=== PATIENT | male | born 1985 | race Caucasian/White ===

== ENCOUNTER 2024-06-05 12:19 | Emergency (ER) | payer BC, SELFPAY ==
[2024-06-05 12:26] VITALS: BP 137/82; PULSE 92; RESP 16; TEMP 36.6; O2SAT 98
--- OUTSIDE RECORDS SUMMARY | 2024-06-05 12:27 | XMS_ITS | Clinical Summary ---
Author Organization [facility] Address [address] [place] [address] Care Team Providers Care Carpet Measurer Name Role Phone James Mitchell MD Primary Care Provider [phone] Source Comments PLEASE NOTE, if this patient is a minor, it may be UNLAWFUL to discuss sensitive information that is contained in these records (such as FAMILY PLANNING, MENTAL HEALTH or SUBSTANCE ABUSE) with the minor patient's parent or other person without the patient's specific authorization.[facility] Allergies Active Allergy Reactions Criticality Noted Date Comments Latex Anaphylaxis,Hives,It ch ing,Palpitations,Rash, Swelling High 06/01/2021 Other Reaction(s): Unknown Sulfa (Sulfonamide Antibiotics) Hives,Itching,Rash High 06/29/2014 Other Reaction(s): Unknown Medications omeprazole (PRILOSEC) [address] capsule Take 20 mg by mouth once a week 06/01/2021 Active ESOMEPRAZOLE MAGNESIUM ORAL Take 1 Tablet by mouth once daily Active Active Problems Problem Noted Date Diagnosed Date Sexual dysfunction 11/01/2023 Assessment & Plan (01/14/2024 4:15 PM CDT): Resolved. Lab work-up unremarkable. Monitor for now. Assessment & Plan (11/05/2023 3:49 PM CDT): Check lab work-up. Advised patient to hold Calcium to see if symptoms resolve. Also consider treatment for anxiety vs Sildenafil prn. Need for vaccination 11/01/2023 Assessment & Plan (05/27/2024 9:42 AM RECEIVING OPERATOR): Flushot today. Assessment & Plan (01/14/2024 4:15 PM CDT): Advised patient to get flu and COVID-19 testing. He states that he will get this from outside retail pharmacy. [facility] to see if he needs any other vaccinations. Discuss at next visit. Assessment & Plan (11/05/2023 3:48 PM CDT): Tdap today. Anxiety 07/25/2023 Assessment & Plan (01/14/2024 4:24 PM CDT): Stable. Lab work-up unremarkable. Monitor for now. Assessment & Plan (11/05/2023 3:48 PM CDT): Check work-up. Monitor for now. GERD (gastroesophageal reflux disease) Assessment & Plan (05/27/2024 9:42 AM RECEIVING OPERATOR): Stable, controlled. Continue present management. Assessment & Plan (01/14/2024 4:14 PM CDT): Stable, controlled. Continue present management. Assessment & Plan (11/05/2023 3:48 PM CDT): Stable, controlled. Continue present management. Encounter for HIV pre-exposure prophylaxis 07/24 Assessment & Plan (05/27/2024 9:42 AM RECEIVING OPERATOR): Not currently taking PrEP due to lower risk level. Follow patient and restart PrEP when he is ready or if risk level changes. F/u in 6 months. Assessment & Plan (01/14/2024 4:14 PM CDT): Not currently taking PrEP due to lower risk level. Follow patient and restart PrEP when he is ready or if risk level changes. F/u in 6 months. Assessment & Plan (11/05/2023 3:49 PM CDT): Not currently taking PrEP due to lower risk level. Follow patient and restart PrEP when he is ready or if risk level changes. Assessment & Plan (07/25/2023 2:06 PM CDT): New to [facility]. Transferring from [facility]. Request records. Recent HIV and STI testing done through [facility] Prevention team. Continue Truvada. Patient declines Doxy PEP. - PrEP is indicated for substantial ongoing risk of acquiring HIV infection. - Patient denies signs or symptoms of acute HIV at this time. - Plan to obtain 4th gen HIV test as well as the labs below. - Plan to continue PrEP using Truvada. - patient was counseled on condoms, risk reduction, and PrEP adherence. High risk medication use 07/25/2023 History of syphilis 07/25/2023 Overview (07/29/2023): Spoke to Edward from [facility] Department regarding RPR titer hx for patient, hx as follows: 2007 (1:64) 05/2007 (1 x Bicillin) 2012 (1:16) 02/2013 (3 x Bicillin) 09/2017 (1:64) 09/2017 ( 3 x Bicillin) 02/2023 (1:64) No tx was administered after this testing Assessment & Plan (05/27/2024 9:42 AM RECEIVING OPERATOR): Improved RPR titer. Monitor for now. Assessment & Plan (01/14/2024 4:14 PM CDT): Improved RPR titer. Monitor for now. Assessment & Plan (07/25/2023 2:07 PM CDT): Recent labwork done through [facility] Prevention team. RPR titer 1:8. Patient reports history of syphilis diagnosis/treatment. Last RPR titer through [email or web address] patient portal was 1:4. Request records. Monitor RPR titer. Encounters Date Type Department Care Team Description 05/26/2024 1:00 PM RECEIVING OPERATOR Office Visit [facility] [id number] [place] [address] James Mitchell MD Encounter for HIV pre-exposure prophylaxis (Primary Dx); History of syphilis; Gastroesophageal reflux disease without esophagitis; Need for vaccination; High risk medication use from Last 3 Months Immunizations Name Administration Dates Next Due INFLUENZA, SEASONAL, INJECTABLE 06/30/2023 INFLUENZA, SEASONAL, INJECTABLE, PRESERVATIVE FR EE 05/26/2024 TDAP 11/01/2023 Social History Tobacco Use Types Packs/Day Years Used Date Smoking Tobacco: Never Smokeless Tobacco: Never Alcohol Use Standard Drinks/Week Comments Yes 0 (1 standard drink = 0.6 oz pur e alcohol) Rarely Social Connections Answer Date Recorded Connectedness 1 01/13/2024 Financial Resource Strain Answer Date R ecorded Financial Resource Strain 1 2023 Stress Answer Date Recorded Stress 1 01/13/2024 Physical Activity Answer Date Recorded Physical Activity 1 01/13/2024 Food Insecurity Answer Date Recorded Food 1 01/13/2024 Transportation Needs Answer Date Record ed Transportation 1 01/13/2024 Housing Stability Answer Date Recorded Housing 1 01/13/2024 Safety and Environment Answer Date Palu rded Safety 1 01/13/2024 Utilities Answer Date Recorded Utilities 1 01/13/2024 Employment Answer Date Recorded Stress 0 01/03/2024 Sex and Gender Information Value Date Recorded Sex Assigned at Male 07/25/2023 9:37 AM PDT Legal Sex Male 8:48 AM PDT Gender Identity Male 07/25/2023 9:37 AM PDT Sexual Orientation [place] 07/25/2023 9: 37 AM PDT Last Filed Vital Signs Vital Sign Reading Time Taken Comments Blood Pressure 122/84 05/26/2024 1:07 PM RECEIVING OPERATOR Pulse 76 05/26/2024 1:07 PM RECEIVING OPERATOR Temperature 36.7 C (98.1 F) 05/26/2024 1:07 PM RECEIVING OPERATOR Respiratory Rate - - Oxygen Saturation 95% 05/26/2024 1:07 PM RECEIVING OPERATOR Inhaled Oxygen Concentration - - Weight 85.5 kg (188 lb 9.6 oz) 05/26/2024 1:07 P M RECEIVING OPERATOR Height 175.3 cm (5' 9 ) 05/26/2024 1:07 PM RECEIVING OPERATOR Body Mass Index 27.85 05/26/2024 1:07 PM RECEIVING OPERATOR Plan of Treatment Upcoming Encounters Date Type Department Care Team (Late st Contact Info) Description 11/24/2024 1:00 PM CDT Office Visit [facility] [address] [place] [address] James Mitchell MD [address] [place] [address] Health Maintenance Due Date Last Done Comments Hepatitis B Screening 1983 Hepatitis C Screening 1983 Imm-Hepatitis A (1 of 2 - Ri sk 2-dose series) 06/23/2002 Imm-Hepatitis B (1 of 3 - 19 + 3-dose series) 06/23/2002 [id number] () 12/22/2023 06/30/2023, 09/20/2020, 08/30/2020 Alcohol and Drug Screen 04/22/2024 Depression Annual Screen 04/22/2024 07/25/2023 Tobacco Screening 07/24/2024 07/25/2023 HIV Screening 11/04/2024 11/05/2023 Syphilis Screening 11/04/2024 11/05/2023, 0 11/05/2023, 07/12/2023, Additional history exists Hypertension Screening (#1) 05/26/2025 Diabetes Screening 11/04/2026 11/05/2023, 11/05/2023 Lipid Screening 11/04/2028 11/05/2023 Imm-DTaP/Tdap/Td (2 - Td or Tdap) 10/31/2033 024 Imm-Influenza Completed 05/26/2024, 06/30/2023 Procedures Procedure Name Priority Date/Time Associated Diagnosis Comments HIV 1/2 AG & AB W/RFLX (4TH GEN) Routine 11/05/2023 8:30 AM CDT Encounter for HIV pre-exposure prophylaxis RPR (MONITOR) W/REFL TITER Routine 11/05/2023 8:30 AM CDT Encounter for HIV pre-exposure prophylaxis HEMOGLOBIN GLYCOSYLATED A1C Routine 11/05/2023 8:30 AM CDT Sexual dysfunction LIPID PANEL Routine 11/05/2023 8:30 AM CDT High risk medication use from Last 3 Months or Most Recently Relevant to Health Maintenance Results * HIV 1/2 AG & AB W/RFLX (4TH GEN) (11/05/2023 8:30 AM CDT) HIV AG/AB, 4TH GEN NON-REACT CARMELA NON-REACT CARMELA [facility] Comment: HIV-1 antigen and HIV-1/HIV-2 antibodies were not detected. There is no laboratory evidence of HIV infection. PLEASE NOTE: This information has been disclosed to you from records whose confidentiality may be protected by state law. If your state requires such protection, then the state law prohibits you from making any further disclosure of the information without the specific written consent of the person to whom it pertains, or as otherwise permitted by law. A general authorization for the release of medical or other information is NOT sufficient for this purpose. For additional information please refer to http://education.[employer]/faq/LWF892 (This link is being provided for informational/ educational purposes only.) The performance of this assay has not been clinically validated in patients less than 2 years old. Blood Blood / Unknown 11/05/2023 8 :30 AM CDT 11/06/2023 3:09 AM CDT us James Mitchell MD LAB - BLOOD DRAW Edited Resu lt - Final [facility] [place] [address] [place] [address], [facility] [place] [address] [place] [address] * (ABNORMAL) RPR (MONITOR) W/REFL TITER (11/05/2023 8:30 AM CDT) RPR (MONITOR) W/REFL TITER REACTIVE( A) NON-REACT CARMELA [facility] Comment: The RPR is a jqy-mbrevzbjzk-caupbyml test; therefore, a treponemal-specific confirmatory test should be performed unless prior syphilis infection has been documented for this patient. Blood Blood / Unknown 11/05/2023 8:30 AM CDT 11/06/2023 4:45 AM CDT us James Mitchell MD LAB - BLOOD DRAW Edited Resu lt - Final [facility] [place] [address] [place] [address], [facility] [place] [address] [place] [address] * HEMOGLOBIN GLYCOSYLATED A1C (11/05/2023 8:30 AM CDT) HEMOGLOBIN A1C 5.1 <5.7 % of total Hgb [facility] [place] Comment: For the purpose of screening for the presence of diabetes: <5.7% Consistent with the absence of diabetes 5.7-6.4% Consistent with increased risk for diabetes (prediabetes) > or =6.5% Consistent with diabetes This assay result is consistent with a decreased risk of diabetes. Currently, no consensus exists regarding use of hemoglobin A1c for diagnosis of diabetes in children. According to [place] Diabetes Association (ADA) guidelines, hemoglobin A1c <7.0% represents optimal control in non- diabetic patients. Different metrics may apply to specific patient populations. Standards of Medical Care in Diabetes(ADA). Blood Blood / Unknown 11/05/2023 8 :30 AM CDT 11/06/2023 4:10 AM CDT Narrative [facility] [place] - 11/06/2023 4:58 PM CDT This test was performed on the Mary Anne nuria c503 platform. Effective 07/08/23, a change in test platforms from the Hernandez Milk Deliverer to the Mary Anne nuria c503 may have shifted HbA1c results compared to historical results. Based on laboratory validation testing conducted at [facility], the Mary Anne platform relative to the Hernandez platform had an average increase in HbA1c value of < or = 0.3%. This difference is within accepted variability established by the National Glycohemoglobin Standardization Program. Note that not all individuals will have had a shift in their results and direct comparisons between historical and current results for testing conducted on different platforms is not recommended. James Mitchell MD LAB - BLOOD DRAW Edited Resu lt - [place] [address], [place] [phone] [facility] [address] [facility] [place] [address] * (ABNORMAL) LIPID PANEL (11/05/2023 8:30 AM CDT) [facility] CHOLESTEROL, TOTAL 205(H) <200 mg/dL [facility] HDL CHOLESTEROL 43 > OR = 40 mg/dL [facility] TRIGLYCERIDES 152(H) <150 mg/dL [facility] LDL-CHOLESTEROL 134(H) mg/dL (calc) [facility] Comment: Reference range: <100 Desirable range <100 mg/dL for primary prevention; <70 mg/dL for patients with CHD or diabetic patients with > or = 2 CHD risk factors. LDL-C is now calculated using the Jules-Ware calculation, which is a validated novel method providing better accuracy than the Friedewald equation in the estimation of LDL-C. Jules SS et al. MATTIE. 2013;310(19): 8050-3065 (http://education.[employer]Customer/faq/HPB199) CHOL/HDLC RATIO 4.8 <5.0 (calc) [facility] NON-HDL CHOLESTEROL 162(H) <130 mg/dL (calc) [facility] Comment: For patients with diabetes plus 1 major ASCVD risk factor, treating to a non-HDL-C goal of <100 mg/dL (LDL-C of <70 mg/dL) is considered a therapeutic option. Blood Blood / Unknown 11/05/2023 8 :30 AM CDT 11/06/2023 3:05 AM CDT James Mitchell MD LAB - BLOOD DRAW Edited Resu lt - Final [facility] [address] [place], [place] [address] [phone] [facility] [address] [place] [address] from Last 3 Months or Most Recently Relevant to Health Maintenance Insurance /[place] Member Subscriber Plan / Payer (Ef fective 2023-Present) Name:JUAN A BRIGGS Relation to Subscriber:Life Partner Name:KARANRAMIRO Sarina Date of :1977 (Home) Address: [address] [place] [address] [place] [address] Payer ID:[id number] Group ID:[id number] Type:Indemnity Address: [facility] [address] [place] [address] Care Teams Carpet Measurer Relationship Specialty Start Date End Date James Mitchell MD [address] [place] [address] PCP - General Infectious Diseases 07/25/23
--- OUTSIDE RECORDS SUMMARY | 2024-06-05 12:27 | XMS_ITS | Clinical Summary ---
Author Organization [facility] Address [address] [place] [address] Phone Care Team Providers Care Coal Dumping Equipment Operator Name Role Phone Mike Angeles MD Primary Care Provider Unavaila ble Allergies Active Allergy Reactions Criticality Noted Date Comments Sulfa (Sulfonamide Antibiotics) Hives High 06/20 Medications ranitidine (ZANTAC) 75 mg Tablet Take 75 mg by mouth 2 times daily. Active ALPRAZolam (XANAX) 0.5 mg tablet Take 1 Tab (0.5 mg) by mouth 3 times daily as needed for Anxiety. 12 Tab None 06/30/2014 Active ESCITALOPRAM OXALATE (LEXAPRO ORAL) Take by mouth daily. Active ESOMEPRAZOLE MAGNESIUM (NEXIUM ORAL) Take by mouth. Active Social History Tobacco Use Types Packs/Day Years Used Date Smoking Tobacco: Never Smokeless Tobacco: Former Alcohol Use Standard Drinks/Week Comments Yes 0 (1 standard drink = 0.6 oz pur e alcohol) rare Sex and Gender Information Value Date Recorded Sex Assigned at Not on file Legal Sex Male 9:57 PM CDT Gender Identity Not on file Sexual Orientation Not on file Last Filed Vital Signs Vital Sign Reading Time Taken Comments Blood Pressure 140/99 07/19/2017 4:00 PM CDT Pulse 100 07/19/2017 4:00 PM CDT Temperature 36.6 C (97.8 F) 07/19/2017 10:35 AM CDT Respiratory Rate 18 07/19/2017 12:00 PM CDT Oxygen Saturation 97% 07/19/2017 4:00 PM CDT Inhaled Oxygen Concentration - - Weight 73.5 kg (162 lb) 07/19/2017 10:35 AM CDT Height 175.3 cm (5' 9 ) 07/19/2017 10:35 AM CDT Body Mass Index 23.92 07/19/2017 10:35 AM CDT Plan of Treatment Health Maintenance Due Date Last Done Comments DTAP/TDAP/TD VACCINES (1 - Tdap) 06/23/2002 HEPATITIS B VACCINES (1 of 3 - 19+ 3-dose series) 06/23/2002 INFLUENZA VACCINE (#1) 2023 HPV VACCINES Aged Out No longer eligi ble based on patient's age to complete this topic Insurance [facility] BLUE ACCESS CHOICE Care Teams Coal Dumping Equipment Operator Relationship Specialty Start Date End Date Mike Angeles MD PCP - General 04/08/15
--- NOTE | 2024-06-05 12:42 | ED_ITS ---
HPI - URI/Sore Throat General Chief Complaint: Upper Respiratory Infection Stated Complaint: fever/throat Source: patient and RN notes reviewed Mode of arrival: ambulatory Limitations: no limitations History of Present Illness HPI Narrative: 38-year-old male presented for complaint of headache, body aches, sinus pressure/congestion, cough, fever/chills. onset 2 days. Reports temp up to 101. Taking multiple mluc-gun-ncjogbj medicines for symptoms. Denies sob, wheezing, n/v/d. MD elicited complaint: cough Related Data Home Medications ?Medication ?Instructions ?Recorded ?Confirmed ?Last Taken ?Type esomeprazole magnesium 20 mg 20 mg PO DAILY 06/05/24 Unknown History capsule,delayed release (Nexium) Allergies Allergy/AdvReac Type Severity Reaction Status Date / Time Sulfa (Sulfonamide Allergy HIVES Verified 06/05/24 12:40 Antibiotics) Review of Systems Review of Systems: CONSTITUTIONAL: Endorses malaise, chills, sweats, fever EYES: Denies visual changes, redness, or discharge ENT: Reports rhinorrhea, congestion, denies sinus pain, otalgia, sore throat CARDIOVASCULAR: Denies chest pain, palpitations, edema RESPIRATORY: Reports cough, post nasal drainage. Denies dyspnea GASTROINTESTINAL: Denies abdominal pain, nausea, vomiting, diarrhea MUSCULOSKELETAL: Endorses myalgia Exam Narrative: GENERAL:mildly ill-appearing, nontoxic no acute distress. EYES: PERRLA, conjunctivae clear ENT: Mucous membranes moist. TM pearly ma with dull light reflex bilaterally; no tragal tenderness. no drooling, no hoarseness, no trismus, uvula midline. No tripod positioning, muffled voice, soft palate or pharyngeal wall bulging NECK: Supple. No lymphadenopathy CHEST: Clear to auscultation, breath sounds equal. No wheezing, rhonchi, rales, or stridor. No respiratory distress, speaks in full sentences. HEART: Regular rate and rhythm. No murmur heard. SKIN: Warm, dry, no rash. NEURO: Alert and oriented x3. PSYCH: Normal mood and affect Course Course Emergency Course: Patient is aware of diagnosis, understands and agrees to treatment plan. Anticipatory guidance given. Patient agrees to follow-up as directed and is aware of reasons to seek care at the emergency department. Portions of this record may have been created with voice recognition software Level of Care: [facility] Visit Vital Signs Vital signs: Vital Signs Temperature 97.8 F 06/05/24 12:26 Pulse Rate 92 06/05/24 12:26 Respiratory Rate 16 06/05/24 12:26 Blood Pressure 137/82 06/05/24 12:26 Pulse Oximetry 98 06/05/24 12:26 Oxygen Delivery Room Air 06/05/24 12:26 Temperature 97.8 F 06/05/24 12:26 Pulse Rate 92 06/05/24 12:26 Respiratory Rate 16 06/05/24 12:26 Blood Pressure 137/82 06/05/24 12:26 Pulse Oximetry 98 06/05/24 12:26 Oxygen Delivery Room Air 06/05/24 12:26 reviewed MDM - URI/Sore Throat MDM Narrative Medical decision making narrative: POS covid. Discussed physical exam findings. Advised supportive measures and signs/symptoms to go to the ER. Pt is appropriate for outpt treatment and f/u. Differential Diagnosis Differential diagnosis: Likely upper respiratory infection, sinusitis, viral infection, bronchitis and other Lab Data Labs: Lab Results 06/05/24 Range/Units 12:42 POC Influenza A Ag Negative (Negative) POC Influenza B Ag Negative (Negative) POC SARS CoV-2 Ag Positive (Negative) Discharge Plan Discharge Clinical Impression: COVID-19 Patient Disposition: Home, Self-Care Condition: Stable Instructions: COVID-19 (Coronavirus Disease 2019) (ED) Additional Instructions: Your rapid COVID test was positive today. The following updated recommendations have been made by the CDC and local Health Departments, regarding COVID-19: - When people get sick with a respiratory virus, they stay home and away from others. - Return to normal activities when, for at least 24 hours, symptoms are improving overall, and if a fever was present, it has been gone without use of a fever-reducing medication. - Once people resume normal activities, they are encouraged to take additional prevention strategies for the next 5 days to curb disease spread, such as taking more steps for delta system freight car cleaner air, enhancing hygiene practices, wearing a well-fitting mask, keeping a distance from others, and/or getting tested for respiratory viruses. - Enhanced precautions are especially important to protect those most at risk for severe illness, including those over 65 and people with weakened immune systems. Rest, stay hydrated. Tylenol and ibuprofen every 8 hours as needed Flonase/nasal spray, Zyrtec, cough syrup cold/flu medications for symptoms as needed Follow up with your primary care provider, call to schedule an appointment. Go to the ER for worsening symptoms or concerns. Patient Language: Burmese Prescriptions: No Action esomeprazole magnesium [Nexium] 20 mg capsule,delayed release(DR/EC) 20 mg PO DAILY Follow-up/Referrals: PHYSICIAN NOT ON STAFF,NONSTAFF [Primary Care Provider] - Time of Disposition: 12:54
[2024-06-05 12:44] LABS: EDCOVIDSCREEN Positive (Negative); EDINFLUASCREEN Negative (Negative); EDINFLUBSCREEN Negative (Negative)
== END 2024-06-05 12:56 | disposition home or self-care (01) ==
PROVIDERS: Emergency Provider Nurse Practitioner Family
DX: U07.1 COVID-19 (principal)
CPT/HCPCS: 87426; 87804; 99202; G0463